=== PATIENT | male | born 1965 | race Caucasian/White ===

== ENCOUNTER 2022-02-01 18:56 | Inpatient (IN) | payer OTHER ==
[~2022-02-01] VITALS: Ht 193 cm; Wt 97.6 kg
[2022-02-01 19:37] LABS: COVID AG,FIA SOURCE NASOPHARYNGEAL
[2022-02-01 19:50] LABS: AMPHET/METH SCREEN,URINE NEGATIVE (NEGATIVE); BARBITURATE SCREEN, URINE NEGATIVE (NEGATIVE); BENZODIAZEPINES SCREEN,URINE NEGATIVE (NEGATIVE); CANNABINOID SCREEN,URINE NEGATIVE (NEGATIVE); COCAINE SCREEN,URINE NEGATIVE (NEGATIVE); METHADONE SCREEN, URINE NEGATIVE (NEGATIVE); OPIATE SCREEN,URINE NEGATIVE (NEGATIVE)
[2022-02-01 19:52] LABS: PHENCYCLIDINE SCREEN,URINE NEGATIVE (NEGATIVE)
[2022-02-01 19:56] LABS: BASOPHILS % (AUTO) 0.3 % (0.0-2.0); HEMATOCRIT 46.4 % (41-53); HEMOGLOBIN 15.7 g/dL (13.5-17.5); LYMPHOCYTES % (AUTO) 27.7 % (22.0-44.0); MEAN CORPUSCULAR HEMOGLOBIN 29.5 pg (26.0-34.0); MEAN CORPUSCULAR HGB CONC 33.9 G/dL (31.0-37.0); MEAN CORPUSCULAR VOLUME 87 fL (80-100); MONOCYTES # (AUTO) 0.7 K/uL (0.1-1.0); NEUTROPHILS # (AUTO) 4.3 K/uL (1.8-7.7); PLATELET COUNT (AUTO) 205 K/uL (150-450); RED BLOOD CELL COUNT(AUTO) 5.32 MIL/uL (4.50-5.90); RED CELL DISTRIBUTION WIDTH 13.4 % (11.5-14.5)
[2022-02-01 20:07] LABS: ANION GAP 14 mmol/L (8-16); CALCIUM, TOTAL 8.9 mg/dL (8.8-10.5); CARBON DIOXIDE 22 mmol/L (22-29); CHLORIDE 104 mmol/L (98-107); CREATININE 1.11 mg/dL (0.60-1.30); GLOMERULAR FILTR. RATE CALC > 60 mL/min (>60); GLUCOSE,RANDOM 106 mg/dL (70-110); POTASSIUM 4.2 mmol/L (3.5-5.1); SODIUM SERUM 140 mmol/L (136-145); UREA NITROGEN, BLOOD 21 mg/dL (7-18)
[2022-02-01] MEDS ORDERED: TRAZ-252 PO (20:10)
[2022-02-01] MEDS ORDERED: CARI-493 PO (20:10)
[2022-02-01] MEDS ORDERED: NORT25 PO (20:10)
[2022-02-01] MEDS ORDERED: PROP20TA18 PO (20:10)
[2022-02-01] MEDS ORDERED: ARIP2TAB27 PO (20:10)
[2022-02-01] MEDS ORDERED: AMIT25TA10 PO (20:10)
[2022-02-01] MEDS ORDERED: ESZO3 PO (20:10)
[2022-02-01 20:13] LABS: ALANINE AMINOTRANSFERASE 24 U/L (12-78); ALBUMIN 4.4 g/dL (3.4-5.0); ALKALINE PHOSPHATASE 78 U/L (46-116); ASPARTATE AMINOTRANSFERASE 19 U/L (15-37); BILIRUBIN,TOTAL 0.7 mg/dL (0.1-1.0); TOTAL PROTEIN, SERUM 7.6 g/dL (6.4-8.2)
[2022-02-01] MEDS ORDERED: LORazepam 2 MG TABLET PO ONE (20:15)
[2022-02-01 21:21] LABS: APPEARANCE,URINE TURBID (CLEAR); BILIRUBIN,URINE NEGATIVE (NEGATIVE); GLUCOSE, URINE (UA) NEGATIVE (NEGATIVE); KETONES,URINE NEGATIVE (NEGATIVE); LEUKOCYTE ESTERASE ,URINE NEGATIVE (NEGATIVE); NITRATE,URINE NEGATIVE (NEGATIVE); OCCULT BLOOD,URINE NEGATIVE (NEGATIVE); PROTEIN,URINE NEGATIVE (NEGATIVE); SPECIFIC GRAVITIY, URINE 1.029 (1.003-1.030); UROBILINOGEN,URINE <=1.0 mg/dL (<=1.0)
[2022-02-01 22:10] VITALS: BP 129/76
[2022-02-02 04:31] VITALS: BP 115/74
[2022-02-02] MEDS: LORazepam 2 MG TABLET PO PRN (04:31)
[2022-02-02 08:00] VITALS: BP 129/85
[2022-02-02] MEDS ORDERED: NICOTINE 14 MG/24 HOUR PATCH TD PRN (14:00)
[2022-02-02] MEDS ORDERED: PETROLATUM,WHITE 28 GM JELLY TP PRN (14:00)
[2022-02-02] MEDS ORDERED: GuaiFENesin/D-METHORPHAN [SUGAR-FREE] 200-20MG/10 ML SYRUP UDCUP PO PRN (14:00)
[2022-02-02] MEDS ORDERED: CloNIDine HCL 0.1 MG TABLET PO PRN (14:00)
[2022-02-02] MEDS ORDERED: ALBUTEROL SULFATE HFA 90 MCG/PUFF 8 GM INHALER IH PRN (14:00)
[2022-02-02] MEDS ORDERED: DOCUSATE SODIUM 100 MG CAPSULE PO PRN (14:00)
[2022-02-02] MEDS ORDERED: LOPERAMIDE HCL 2 MG CAPSULE PO PRN (14:00)
[2022-02-02] MEDS ORDERED: MAG HYDROX/AL HYDROX/SIMETH ES 30 ML SUSPENSION UDCUP PO PRN (14:00)
[2022-02-02] MEDS ORDERED: ONDANSETRON HCL 4 MG TABLET PO PRN (14:00)
[2022-02-02] MEDS ORDERED: ACETAMINOPHEN 325 MG TABLET PO PRN (14:00)
[2022-02-02] MEDS ORDERED: IBUPROFEN 400 MG TABLET PO PRN (14:00)
[2022-02-02 16:00] VITALS: BP 158/77
[2022-02-02 17:13] VITALS: BP 158/77
[2022-02-02] MEDS: PROPRANOLOL HCL 20 MG TABLET PO SCH (17:25)
[2022-02-02] MEDS: TraZODone HCL 50 MG TABLET PO SCH (20:19)
[2022-02-02] MEDS: ARIPiprazole 5 MG TABLET PO SCH (20:19)
[2022-02-02] MEDS: NORTRIPTYLINE HCL 25 MG CAPSULE PO SCH (20:19)
[2022-02-02] MEDS: CARISOPRODOL 350 MG TABLET PO SCH (20:19)
[2022-02-02] MEDS ORDERED: AMITRIPTYLINE HCL 25 MG TABLET PO SCH (21:00)
[2022-02-02] MEDS ORDERED: ARIPiprazole 2 MG TABLET PO SCH (21:00)
[2022-02-03 02:05] VITALS: BP 114/80
[2022-02-03] MEDS: ZOLPIDEM TARTRATE 10 MG TABLET PO PRN ×2 (02:11→22:23)
[2022-02-03 08:00] VITALS: BP 93/52
[2022-02-03] MEDS: PROPRANOLOL HCL 20 MG TABLET PO SCH ×3 (09:00→16:49)
[2022-02-03] MEDS: LORazepam 2 MG TABLET PO PRN (10:17)
[2022-02-03 18:19] VITALS: BP 110/81
[2022-02-03] MEDS: NORTRIPTYLINE HCL 25 MG CAPSULE PO SCH (20:14)
[2022-02-03] MEDS: TraZODone HCL 50 MG TABLET PO SCH (20:15)
[2022-02-03] MEDS: ARIPiprazole 5 MG TABLET PO SCH (20:15)
[2022-02-03] MEDS: CARISOPRODOL 350 MG TABLET PO SCH (20:15)
[2022-02-04] MEDS: PROPRANOLOL HCL 20 MG TABLET PO SCH ×3 (08:52→16:12)
[2022-02-04 09:09] VITALS: BP 146/95
[2022-02-04 16:54] VITALS: BP 140/100
[2022-02-04] MEDS: TraZODone HCL 50 MG TABLET PO SCH (20:56)
[2022-02-04] MEDS: NORTRIPTYLINE HCL 25 MG CAPSULE PO SCH (20:56)
[2022-02-04] MEDS: ARIPiprazole 5 MG TABLET PO SCH (20:56)
[2022-02-04] MEDS: CARISOPRODOL 350 MG TABLET PO SCH (21:01)
[2022-02-05 08:10] VITALS: BP 106/63
[2022-02-05] MEDS: LORazepam 2 MG TABLET PO PRN (08:10)
[2022-02-05] MEDS: PROPRANOLOL HCL 20 MG TABLET PO SCH ×3 (08:10→16:45)
[2022-02-05 09:49] VITALS: BP 106/63
[2022-02-05 19:15] VITALS: BP 104/69
[2022-02-05] MEDS: NORTRIPTYLINE HCL 25 MG CAPSULE PO SCH (20:08)
[2022-02-05] MEDS: CARISOPRODOL 350 MG TABLET PO SCH (20:08)
[2022-02-05] MEDS: ARIPiprazole 5 MG TABLET PO SCH (20:18)
[2022-02-05] MEDS: TraZODone HCL 50 MG TABLET PO SCH (20:18)
[2022-02-06] MEDS: ZOLPIDEM TARTRATE 10 MG TABLET PO PRN ×2 (00:07→21:48)
[2022-02-06 00:53] VITALS: BP 139/65
[2022-02-06 04:59] VITALS: BP 119/70
[2022-02-06] MEDS: PROPRANOLOL HCL 20 MG TABLET PO SCH ×3 (09:02→16:54)
[2022-02-06] MEDS: HALOPERIDOL 5 MG TABLET PO PRN (09:02)
[2022-02-06] MEDS: LORazepam 2 MG TABLET PO PRN (09:02)
[2022-02-06 09:06] VITALS: BP 107/54
[2022-02-06 17:14] VITALS: BP 136/99
[2022-02-06] MEDS: CARISOPRODOL 350 MG TABLET PO SCH (20:22)
[2022-02-06] MEDS: NORTRIPTYLINE HCL 25 MG CAPSULE PO SCH (20:22)
[2022-02-06] MEDS: TraZODone HCL 50 MG TABLET PO SCH (20:22)
[2022-02-06] MEDS: ARIPiprazole 5 MG TABLET PO SCH (20:22)
[2022-02-07 08:16] VITALS: BP 130/83
[2022-02-07] MEDS: PROPRANOLOL HCL 20 MG TABLET PO SCH ×3 (08:41→16:18)
[2022-02-07] MEDS: HALOPERIDOL 5 MG TABLET PO PRN ×2 (08:41→14:13)
[2022-02-07] MEDS: HydrOXYzine PAMOATE 25 MG CAPSULE PO PRN ×2 (08:41→14:13)
[2022-02-07 16:18] VITALS: BP 102/74
[2022-02-07] MEDS: TraZODone HCL 150 MG TABLET PO SCH (20:02)
[2022-02-07] MEDS: NORTRIPTYLINE HCL 25 MG CAPSULE PO SCH (20:02)
[2022-02-07] MEDS: CARISOPRODOL 350 MG TABLET PO SCH (20:02)
[2022-02-07] MEDS ORDERED: PALIPERIDONE 3 MG ER TABLET PO SCH (21:00)
[2022-02-07] MEDS: ZOLPIDEM TARTRATE 10 MG TABLET PO PRN (21:25)
[2022-02-08 08:00] VITALS: BP 162/95
[2022-02-08] MEDS: HALOPERIDOL 5 MG TABLET PO PRN ×2 (08:20→12:52)
[2022-02-08] MEDS: HydrOXYzine PAMOATE 25 MG CAPSULE PO PRN ×2 (08:20→12:52)
[2022-02-08] MEDS: PROPRANOLOL HCL 20 MG TABLET PO SCH ×3 (08:20→16:24)
[2022-02-08 09:18] LABS: COVID AG,FIA SOURCE NASAL SWAB
[2022-02-08 17:01] VITALS: BP 149/82
[2022-02-08] MEDS: TraZODone HCL 150 MG TABLET PO SCH (20:17)
[2022-02-08] MEDS: PALIPERIDONE 3 MG ER TABLET PO SCH (20:17)
[2022-02-08] MEDS: CARISOPRODOL 350 MG TABLET PO SCH (20:18)
[2022-02-08] MEDS: NORTRIPTYLINE HCL 25 MG CAPSULE PO SCH (20:18)
[2022-02-09] MEDS: PROPRANOLOL HCL 20 MG TABLET PO SCH ×3 (09:30→16:42)
[2022-02-09] MEDS: PALIPERIDONE 3 MG ER TABLET PO SCH ×2 (09:30→20:35)
[2022-02-09 09:49] VITALS: BP 115/75
[2022-02-09 16:00] VITALS: BP 140/75
[2022-02-09] MEDS: CARISOPRODOL 350 MG TABLET PO SCH (20:35)
[2022-02-09] MEDS: TraZODone HCL 150 MG TABLET PO SCH (20:35)
[2022-02-09] MEDS: NORTRIPTYLINE HCL 25 MG CAPSULE PO SCH (20:35)
[2022-02-09] MEDS: ZOLPIDEM TARTRATE 10 MG TABLET PO PRN (21:28)
[2022-02-10] MEDS: PROPRANOLOL HCL 20 MG TABLET PO SCH ×3 (08:40→16:27)
[2022-02-10] MEDS: PALIPERIDONE 3 MG ER TABLET PO SCH ×2 (08:40→20:24)
[2022-02-10 08:51] VITALS: BP 138/85
[2022-02-10 16:00] VITALS: BP 138/80
[2022-02-10] MEDS: NORTRIPTYLINE HCL 25 MG CAPSULE PO SCH (20:24)
[2022-02-10] MEDS: CARISOPRODOL 350 MG TABLET PO SCH (20:24)
[2022-02-10] MEDS: TraZODone HCL 150 MG TABLET PO SCH (20:24)
[2022-02-11 08:02] VITALS: BP 144/86
[2022-02-11] MEDS: PROPRANOLOL HCL 20 MG TABLET PO SCH ×3 (08:28→16:32)
[2022-02-11] MEDS: PALIPERIDONE 3 MG ER TABLET PO SCH ×2 (08:28→21:03)
[2022-02-11] MEDS: HALOPERIDOL 5 MG TABLET PO PRN ×2 (09:06→16:30)
[2022-02-11] MEDS: HydrOXYzine PAMOATE 25 MG CAPSULE PO PRN ×2 (09:06→16:30)
[2022-02-11 16:00] VITALS: BP 144/86
[2022-02-11 16:30] VITALS: BP 144/86
[2022-02-11 16:49] VITALS: BP 144/86
[2022-02-11] MEDS: NORTRIPTYLINE HCL 25 MG CAPSULE PO SCH (21:04)
[2022-02-11] MEDS: CARISOPRODOL 350 MG TABLET PO SCH (21:04)
[2022-02-11] MEDS: TraZODone HCL 150 MG TABLET PO SCH (21:04)
[2022-02-12 08:30] VITALS: BP 134/88
[2022-02-12] MEDS: PROPRANOLOL HCL 20 MG TABLET PO SCH ×3 (08:45→16:28)
[2022-02-12] MEDS: PALIPERIDONE 3 MG ER TABLET PO SCH ×2 (08:45→20:32)
[2022-02-12] MEDS: HALOPERIDOL 5 MG TABLET PO PRN (09:23)
[2022-02-12] MEDS: HydrOXYzine PAMOATE 25 MG CAPSULE PO PRN (09:23)
[2022-02-12 16:58] VITALS: BP 139/74
[2022-02-12] MEDS: TraZODone HCL 150 MG TABLET PO SCH (20:32)
[2022-02-12] MEDS: NORTRIPTYLINE HCL 25 MG CAPSULE PO SCH (20:32)
[2022-02-12] MEDS: CARISOPRODOL 350 MG TABLET PO SCH (20:32)
[2022-02-12] MEDS: ZOLPIDEM TARTRATE 10 MG TABLET PO PRN (21:07)
[2022-02-13 08:51] VITALS: BP 137/87
[2022-02-13] MEDS: PROPRANOLOL HCL 20 MG TABLET PO SCH ×3 (09:05→16:31)
[2022-02-13] MEDS: PALIPERIDONE 3 MG ER TABLET PO SCH (09:05)
[2022-02-13 16:41] VITALS: BP 133/80
[2022-02-13] MEDS: NORTRIPTYLINE HCL 25 MG CAPSULE PO SCH (20:25)
[2022-02-13] MEDS: PALIPERIDONE 1.5 MG ER TABLET PO SCH (20:25)
[2022-02-13] MEDS: CARISOPRODOL 350 MG TABLET PO SCH (20:26)
[2022-02-13] MEDS: TraZODone HCL 150 MG TABLET PO SCH (20:26)
[2022-02-13] MEDS: PRAZOSIN HCL 1 MG CAPSULE PO SCH (20:26)
[2022-02-13] MEDS: ZOLPIDEM TARTRATE 10 MG TABLET PO PRN (23:38)
[2022-02-14 08:02] VITALS: BP 138/81
[2022-02-14] MEDS: PALIPERIDONE 1.5 MG ER TABLET PO SCH ×2 (08:38→20:12)
[2022-02-14] MEDS: PROPRANOLOL HCL 20 MG TABLET PO SCH ×3 (08:39→17:13)
[2022-02-14] MEDS: HALOPERIDOL 5 MG TABLET PO PRN ×2 (12:07→16:28)
[2022-02-14] MEDS: HydrOXYzine PAMOATE 25 MG CAPSULE PO PRN (16:05)
[2022-02-14 17:42] VITALS: BP 132/72
[2022-02-14] MEDS: CARISOPRODOL 350 MG TABLET PO SCH (20:12)
[2022-02-14] MEDS: PRAZOSIN HCL 1 MG CAPSULE PO SCH (20:12)
[2022-02-14] MEDS: NORTRIPTYLINE HCL 25 MG CAPSULE PO SCH (20:12)
[2022-02-14] MEDS: TraZODone HCL 150 MG TABLET PO SCH (20:15)
[2022-02-15 08:00] VITALS: BP 139/98
[2022-02-15] MEDS: HydrOXYzine PAMOATE 25 MG CAPSULE PO PRN (08:05)
[2022-02-15] MEDS: HALOPERIDOL 5 MG TABLET PO PRN (08:05)
[2022-02-15] MEDS: PALIPERIDONE 1.5 MG ER TABLET PO SCH ×2 (08:15→20:35)
[2022-02-15] MEDS: PROPRANOLOL HCL 20 MG TABLET PO SCH ×3 (08:15→17:08)
[2022-02-15 15:06] LABS: COVID AG,FIA SOURCE NASAL SWAB
[2022-02-15 16:26] VITALS: BP 123/77
[2022-02-15] MEDS: TraZODone HCL 150 MG TABLET PO SCH (20:33)
[2022-02-15] MEDS: NORTRIPTYLINE HCL 25 MG CAPSULE PO SCH (20:34)
[2022-02-15] MEDS: PRAZOSIN HCL 1 MG CAPSULE PO SCH (20:34)
[2022-02-15] MEDS: CARISOPRODOL 350 MG TABLET PO SCH (21:00)
[2022-02-15] MEDS: ZOLPIDEM TARTRATE 10 MG TABLET PO PRN (21:10)
[2022-02-16] MEDS: HALOPERIDOL 5 MG TABLET PO PRN ×2 (08:09→12:54)
[2022-02-16] MEDS: PALIPERIDONE 1.5 MG ER TABLET PO SCH ×2 (08:09→20:13)
[2022-02-16] MEDS: PROPRANOLOL HCL 20 MG TABLET PO SCH ×3 (08:09→17:00)
[2022-02-16] MEDS: HydrOXYzine PAMOATE 25 MG CAPSULE PO PRN ×2 (08:09→12:54)
[2022-02-16 09:00] VITALS: BP 150/105
[2022-02-16 17:17] VITALS: BP 112/88
[2022-02-16] MEDS: PRAZOSIN HCL 2 MG CAPSULE PO SCH (20:11)
[2022-02-16] MEDS: CARISOPRODOL 350 MG TABLET PO SCH (20:11)
[2022-02-16] MEDS: NORTRIPTYLINE HCL 25 MG CAPSULE PO SCH (20:11)
[2022-02-16] MEDS: TraZODone HCL 150 MG TABLET PO SCH (20:12)
[2022-02-16 20:19] VITALS: BP 143/89
[2022-02-16] MEDS: ZOLPIDEM TARTRATE 10 MG TABLET PO PRN (21:32)
[2022-02-17 08:00] VITALS: BP 141/73
[2022-02-17] MEDS: PALIPERIDONE 1.5 MG ER TABLET PO SCH ×2 (09:03→21:04)
[2022-02-17] MEDS: PROPRANOLOL HCL 60 MG ER CAPSULE PO SCH (09:03)
[2022-02-17 12:31] VITALS: BP 138/78
[2022-02-17 16:37] VITALS: BP 155/84
[2022-02-17] MEDS: MAGNESIUM HYDROXIDE SUSPENSION 30 ML UDCUP PO PRN (20:25)
[2022-02-17] MEDS: PRAZOSIN HCL 2 MG CAPSULE PO SCH (21:04)
[2022-02-17] MEDS: CARISOPRODOL 350 MG TABLET PO SCH (21:04)
[2022-02-17] MEDS: NORTRIPTYLINE HCL 25 MG CAPSULE PO SCH (21:05)
[2022-02-17] MEDS: TraZODone HCL 150 MG TABLET PO SCH (21:05)
[2022-02-17] MEDS: ZOLPIDEM TARTRATE 10 MG TABLET PO PRN (22:23)
[2022-02-18] MEDS: PROPRANOLOL HCL 60 MG ER CAPSULE PO SCH (09:37)
[2022-02-18] MEDS: PALIPERIDONE 1.5 MG ER TABLET PO SCH ×2 (09:37→20:30)
[2022-02-18] MEDS: MAGNESIUM HYDROXIDE SUSPENSION 30 ML UDCUP PO PRN (09:45)
[2022-02-18 09:58] VITALS: BP 118/71
[2022-02-18] MEDS: TraZODone HCL 150 MG TABLET PO SCH (20:29)
[2022-02-18] MEDS: NORTRIPTYLINE HCL 25 MG CAPSULE PO SCH (20:30)
[2022-02-18] MEDS: PRAZOSIN HCL 2 MG CAPSULE PO SCH (20:30)
[2022-02-18] MEDS: CARISOPRODOL 350 MG TABLET PO SCH (20:30)
[2022-02-18] MEDS: ZOLPIDEM TARTRATE 10 MG TABLET PO PRN (21:20)
[2022-02-19] MEDS: PALIPERIDONE 1.5 MG ER TABLET PO SCH ×2 (08:44→20:02)
[2022-02-19] MEDS: PROPRANOLOL HCL 60 MG ER CAPSULE PO SCH (08:45)
[2022-02-19 09:00] VITALS: BP 122/74
[2022-02-19] MEDS: MAGNESIUM HYDROXIDE SUSPENSION 30 ML UDCUP PO PRN ×2 (13:30→15:45)
[2022-02-19 16:00] VITALS: BP 119/68
[2022-02-19] MEDS: NORTRIPTYLINE HCL 25 MG CAPSULE PO SCH (20:01)
[2022-02-19] MEDS: CARISOPRODOL 350 MG TABLET PO SCH (20:01)
[2022-02-19] MEDS: TraZODone HCL 150 MG TABLET PO SCH ×2 (20:01→20:27)
[2022-02-19] MEDS: PRAZOSIN HCL 2 MG CAPSULE PO SCH (20:02)
[2022-02-19] MEDS: ZOLPIDEM TARTRATE 10 MG TABLET PO PRN (20:28)
[2022-02-20] MEDS: PROPRANOLOL HCL 60 MG ER CAPSULE PO SCH (08:12)
[2022-02-20] MEDS: PALIPERIDONE 1.5 MG ER TABLET PO SCH ×2 (08:13→20:30)
[2022-02-20 10:13] VITALS: BP 129/81
[2022-02-20 16:00] VITALS: BP 114/71
[2022-02-20] MEDS: TraZODone HCL 150 MG TABLET PO SCH (20:30)
[2022-02-20] MEDS: NORTRIPTYLINE HCL 25 MG CAPSULE PO SCH (20:30)
[2022-02-20] MEDS: CARISOPRODOL 350 MG TABLET PO SCH (20:30)
[2022-02-20] MEDS: PRAZOSIN HCL 1 MG CAPSULE PO SCH (20:30)
[2022-02-21 08:46] VITALS: BP 124/67
[2022-02-21] MEDS: PALIPERIDONE 1.5 MG ER TABLET PO SCH ×2 (08:46→20:36)
[2022-02-21] MEDS: PROPRANOLOL HCL 60 MG ER CAPSULE PO SCH (08:46)
[2022-02-21] MEDS: HALOPERIDOL 5 MG TABLET PO PRN (10:25)
[2022-02-21] MEDS: HydrOXYzine PAMOATE 25 MG CAPSULE PO PRN (10:25)
[2022-02-21 16:00] VITALS: BP 150/92
[2022-02-21] MEDS: TraZODone HCL 150 MG TABLET PO SCH (20:32)
[2022-02-21] MEDS: PRAZOSIN HCL 1 MG CAPSULE PO SCH (20:36)
[2022-02-21] MEDS: NORTRIPTYLINE HCL 25 MG CAPSULE PO SCH (20:37)
[2022-02-21] MEDS: CARISOPRODOL 350 MG TABLET PO SCH (20:37)
[2022-02-21] MEDS: ZOLPIDEM TARTRATE 10 MG TABLET PO PRN (22:30)
[2022-02-22 08:00] VITALS: BP 109/63
[2022-02-22] MEDS: PROPRANOLOL HCL 60 MG ER CAPSULE PO SCH (09:39)
[2022-02-22] MEDS: PALIPERIDONE 1.5 MG ER TABLET PO SCH ×2 (09:40→21:31)
[2022-02-22 15:34] LABS: COVID AG,FIA SOURCE NASAL SWAB
[2022-02-22] MEDS: MAGNESIUM HYDROXIDE SUSPENSION 30 ML UDCUP PO PRN (16:34)
[2022-02-22 16:38] VITALS: BP 139/90
[2022-02-22] MEDS: PRAZOSIN HCL 1 MG CAPSULE PO SCH (21:30)
[2022-02-22] MEDS: NORTRIPTYLINE HCL 25 MG CAPSULE PO SCH (21:31)
[2022-02-22] MEDS: TraZODone HCL 150 MG TABLET PO SCH (21:31)
[2022-02-22] MEDS: CARISOPRODOL 350 MG TABLET PO SCH (21:31)
[2022-02-22] MEDS: ZOLPIDEM TARTRATE 10 MG TABLET PO PRN (21:45)
[2022-02-23 08:54] VITALS: BP 116/58
[2022-02-23] MEDS: PALIPERIDONE 1.5 MG ER TABLET PO SCH ×2 (09:37→20:06)
[2022-02-23] MEDS: PROPRANOLOL HCL 60 MG ER CAPSULE PO SCH (09:37)
[2022-02-23 16:49] VITALS: BP 125/72
[2022-02-23] MEDS: CARISOPRODOL 350 MG TABLET PO SCH (20:06)
[2022-02-23] MEDS: NORTRIPTYLINE HCL 25 MG CAPSULE PO SCH (20:07)
[2022-02-23] MEDS: TraZODone HCL 150 MG TABLET PO SCH (20:07)
[2022-02-23] MEDS: PRAZOSIN HCL 1 MG CAPSULE PO SCH (20:07)
[2022-02-23] MEDS: ZOLPIDEM TARTRATE 10 MG TABLET PO PRN (20:38)
[2022-02-24 08:48] VITALS: BP 104/58
[2022-02-24] MEDS: PALIPERIDONE 1.5 MG ER TABLET PO SCH ×2 (09:03→20:12)
[2022-02-24] MEDS: PROPRANOLOL HCL 60 MG ER CAPSULE PO SCH (09:04)
[2022-02-24] MEDS: PRAZOSIN HCL 1 MG CAPSULE PO SCH (20:11)
[2022-02-24] MEDS: NORTRIPTYLINE HCL 25 MG CAPSULE PO SCH (20:11)
[2022-02-24] MEDS: TraZODone HCL 150 MG TABLET PO SCH (20:12)
[2022-02-24] MEDS: CARISOPRODOL 350 MG TABLET PO SCH (20:12)
[2022-02-24] MEDS: ZOLPIDEM TARTRATE 10 MG TABLET PO PRN (21:50)
[2022-02-25 08:00] VITALS: BP 93/54
[2022-02-25] MEDS: PALIPERIDONE 1.5 MG ER TABLET PO SCH ×2 (09:33→20:07)
[2022-02-25] MEDS: PROPRANOLOL HCL 60 MG ER CAPSULE PO SCH (10:11)
[2022-02-25 17:00] VITALS: BP 115/70
[2022-02-25] MEDS: CARISOPRODOL 350 MG TABLET PO SCH ×2 (20:07→20:54)
[2022-02-25] MEDS: NORTRIPTYLINE HCL 25 MG CAPSULE PO SCH (20:07)
[2022-02-25] MEDS: PRAZOSIN HCL 1 MG CAPSULE PO SCH (20:07)
[2022-02-25] MEDS: TraZODone HCL 150 MG TABLET PO SCH (20:07)
[2022-02-25] MEDS: ZOLPIDEM TARTRATE 10 MG TABLET PO PRN (21:21)
[2022-02-26] MEDS: PROPRANOLOL HCL 60 MG ER CAPSULE PO SCH (09:26)
[2022-02-26] MEDS: PALIPERIDONE 1.5 MG ER TABLET PO SCH ×2 (09:26→20:03)
[2022-02-26 11:31] VITALS: BP 127/84
[2022-02-26 16:30] VITALS: BP 130/80
[2022-02-26] MEDS: TraZODone HCL 150 MG TABLET PO SCH (20:03)
[2022-02-26] MEDS: NORTRIPTYLINE HCL 25 MG CAPSULE PO SCH (20:04)
[2022-02-26] MEDS: PRAZOSIN HCL 1 MG CAPSULE PO SCH (20:04)
[2022-02-26] MEDS: CARISOPRODOL 350 MG TABLET PO SCH (21:00)
[2022-02-26] MEDS: ZOLPIDEM TARTRATE 10 MG TABLET PO PRN (21:19)
[2022-02-27] MEDS: PROPRANOLOL HCL 60 MG ER CAPSULE PO SCH (08:31)
[2022-02-27] MEDS: PALIPERIDONE 1.5 MG ER TABLET PO SCH (08:32)
[2022-02-27 09:03] VITALS: BP 111/74
[2022-02-27] MEDS ORDERED: PROP60CA38 PO (10:00)
[2022-02-27] MEDS ORDERED: PALI1.5T7 PO ×2 (10:00→17:11)
[2022-02-27] MEDS ORDERED: TRAZ150T80 PO (10:00)
[2022-02-27] MEDS ORDERED: PRAZ1 PO (10:00)
[2022-02-27] MEDS ORDERED: PROP60CA31 PO (11:16)
[2022-02-27] MEDS ORDERED: CARI-493 PO (11:16)
[2022-02-27] MEDS ORDERED: PRAZ2 PO (17:11)
[2022-02-27] MEDS ORDERED: TRAZ-283 PO (17:11)
== END 2022-02-27 10:15 | DRG 885 ==
LOC: EMS 18:58 → 3EI 21:01 → 3EC 02-06 21:57 → 3EI 02-07 21:12
PROVIDERS: ADMIT Psychiatry & Neurology Psychiatry; ATTEND Psychiatry & Neurology Psychiatry
DX: F31.5 Bipolar disorder, current episode depressed, severe, with psychotic features (principal); R45.851 Suicidal ideations; F41.9 Anxiety disorder, unspecified; G47.00 Insomnia, unspecified; K59.00 Constipation, unspecified; Z62.810 Personal history of physical and sexual abuse in childhood; Z62.811 Personal history of psychological abuse in childhood; R03.0 Elevated blood-pressure reading, without diagnosis of hypertension; R53.83 Other fatigue; F43.12 Post-traumatic stress disorder, chronic; Z20.822 Contact with and (suspected) exposure to COVID-19; Z59.00 Homelessness unspecified; Z91.410 Personal history of adult physical and sexual abuse
CPT/HCPCS: 80053; 81003; 84146; 85025; 99285; G0480